=== PATIENT | female | born 1985 | race African-American/Black ===

== ENCOUNTER 2019-02-23 21:01 | Emergency (ER) | payer MEDICAID, OTHER ==
[~2019-02-23] VITALS: Ht 167.6 cm; Wt 57.0 kg
[2019-02-24] MEDS ORDERED: BACITRACIN ZINC OINT UDPKT TOP ONE (03:30)
[2019-02-24] MEDS ORDERED: BACITRACIN 15GM TUBE TOP NR (04:15)
[2019-02-24 04:35] VITALS: BP 107/61
== END 2019-02-24 03:30 | disposition home or self-care (01) ==
LOC: ER 02-24 03:21
DX: M62.441 Contracture of muscle, right hand (principal); F17.200 Nicotine dependence, unspecified, uncomplicated; F12.10 Cannabis abuse, uncomplicated
CPT/HCPCS: 99284

== ENCOUNTER 2023-11-03 12:14 | Emergency (ER) | payer MEDICAID ==
[~2023-11-03] VITALS: Ht 170.2 cm; Wt 63.5 kg
[2023-11-03 12:29] VITALS: O2SAT 100
[2023-11-03 13:30] LABS: HEMATOCRIT. 27.2 % (36.0-48.0); HEMOGLOBIN. 8.5 g/dL (12.0-16.0); MEAN CORPUSCULAR HEMOGLOBIN 26.5 pg (28.0-32.0); MEAN CORPUSCULAR HGB CONC 31.3 g/dL (31.0-37.0); MEAN CORPUSCULAR VOLUME 84.8 fL (81.0-99.0); MEAN PLATELET VOLUME 7.4 fl (7.4-10.4); PLATELET 476 x1000/uL (130-400); RED BLOOD CELL COUNT 3.21 mill/uL (4.2-5.4); RED CELL DISTRIBUTION WIDTH 18.8 % (11.6-14.6); WHITE BLOOD COUNT 11.9 x1000/uL (4.5-11.0)
[2023-11-03 13:31] LABS: DIFFERENTIAL COMMENT 1
[2023-11-03 13:34] LABS: CARBON DIOXIDE 32 mEq/L (21-32); CHLORIDE 98 mEq/L (98-107); POTASSIUM 3.1 mEq/L (3.5-5.1); SODIUM 136 mEq/L (136-145)
[2023-11-03 13:35] LABS: CALCIUM 8.7 mg/dL (8.7-10.4)
[2023-11-03 13:40] LABS: CREATININE 0.6 mg/dL (0.6-1.0); GLUCOSE 89 mg/dL (70-105); UREA NITROGEN BLOOD 14 mg/dL (9-23)
[2023-11-03 13:47] LABS: INR 1.1; PROTHROMBIN TIME 12.5 sec (9.6-11.0)
[2023-11-03 13:54] LABS: HCG SCREEN NEGATIVE
[2023-11-03 14:52] LABS: ANISOCYTOSIS 2+; PLATELET ESTIMATE INCREASED
[2023-11-03 15:57] LABS: CLARITY URINE CLOUDY (CLEAR); COLOR URINE YELLOW (YELLOW); GLUCOSE URINE NEGATIVE (NEGATIVE); KETONES URINE 1+ (NEGATIVE); LEUKOCYTE ESTERASE URINE 1+ (NEGATIVE); NITRITE URINE POSITIVE (NEGATIVE); OCCULT BLOOD URINE 3+ (NEGATIVE); PH URINE 6.5 (4.5-8.0); PROTEIN URINE 1+ (NEGATIVE); SPECIFIC GRAVITY URINE 1.019 (1.005-1.030)
[2023-11-03 16:17] LABS: BACTERIA URINE 4+; RBC URINE TNTC /hpf (0-2); SQUAMOUS EPITHELIAL CELL URINE FEW /lpf (RARE/1+); WBC URINE 25-50 /hpf (0-2); YEAST URINE NONE SEEN
[2023-11-03] MEDS ORDERED: IBUP-1523 MT (17:01)
[2023-11-03] MEDS: KETOROLAC 15MG/ML VIAL IM ONE (18:19)
[2023-11-03 18:21] VITALS: BP 124/76; PULSE 78; RESP 16; TEMP 98.3
[2023-11-03] MEDS ORDERED: CEFD300C3 MT (19:07)
[2023-11-03] MEDS ORDERED: CEFTRIAXONE SODIUM 500MG VIAL IM ONE (20:45)
[2023-11-03] MEDS ORDERED: AZITHROMYCIN 500 MG TABLET PO SCH ×2 (20:45→21:00)
== END 2023-11-03 21:05 | disposition home or self-care (01) ==
LOC: ER 12:14
DX: N39.0 Urinary tract infection, site not specified (principal); N83.201 Unspecified ovarian cyst, right side; N83.202 Unspecified ovarian cyst, left side; F12.10 Cannabis abuse, uncomplicated
CPT/HCPCS: 99285; 74176; 76830; 76856; 80048; 81003; 81025; 84703; 83690; 85025; 85610; 87086; 87186; 87077; 36415; 96372; J1885

== ENCOUNTER 2023-12-14 18:26 | Emergency (ER) | payer MEDICAID ==
[~2023-12-14] VITALS: Ht 175.3 cm; Wt 57.0 kg
[~2023-12-14 18:26] MED LIST: CEFD300C3 MT; IBUP-1523 MT
[2023-12-14 18:29] VITALS: BP 107/80; PULSE 83; RESP 18; TEMP 98.4; O2SAT 99
[2023-12-14 19:50] LABS: BASOPHILS % 0.3 % (0.0-2.0); EOSINOPHILS % 0.6 % (0.0-5.0); HEMATOCRIT. 34.5 % (36.0-48.0); LYMPHOCYTES % 13.1 % (20.0-50.0); MEAN CORPUSCULAR HEMOGLOBIN 28.5 pg (28.0-32.0); MEAN PLATELET VOLUME 6.7 fl (7.4-10.4); MONOCYTES % 4.6 % (2.0-8.0); NEUTROPHILS % 81.4 % (40.0-76.0); PLATELET 564 x1000/uL (130-400); RED BLOOD CELL COUNT 3.88 mill/uL (4.2-5.4); RED CELL DISTRIBUTION WIDTH 23.9 % (11.6-14.6); WHITE BLOOD COUNT 12.4 x1000/uL (4.5-11.0)
[2023-12-14 19:56] LABS: CHLORIDE 97 mEq/L (98-107); POTASSIUM 4.2 mEq/L (3.5-5.1); SODIUM 133 mEq/L (136-145)
[2023-12-14 19:57] LABS: CALCIUM 9.8 mg/dL (8.7-10.4); CARBON DIOXIDE 30 mEq/L (21-32)
[2023-12-14 20:01] LABS: ADD RBC MORPHOLOGY YES; DIFFERENTIAL COMMENT 1
[2023-12-14 20:02] LABS: CREATININE 0.8 mg/dL (0.6-1.0); GLUCOSE 116 mg/dL (70-105); UREA NITROGEN BLOOD 16 mg/dL (9-23)
[2023-12-14 20:04] LABS: ALANINE AMINOTRANSFERASE < 7 IU/L (10-49); ALBUMIN 4.2 g/dL (3.2-4.8); ASPARTATE AMINOTRANSFERASE 14 IU/L (<34); BILIRUBIN DIRECT 0.1 mg/dL (<=3.0); BILIRUBIN TOTAL 0.5 mg/dL (0.1-1.0); PROTEIN TOTAL 9.1 g/dL (6.0-8.3)
[2023-12-14 20:09] LABS: HCG SCREEN NEGATIVE
[2023-12-14 20:17] LABS: ANISOCYTOSIS 2+; PLATELET ESTIMATE INCREASED
== END 2023-12-15 00:05 | disposition left against medical advice (07) ==
LOC: ER 18:26
DX: R10.9 Unspecified abdominal pain (principal); Z53.21 Procedure and treatment not carried out due to patient leaving prior to being seen by health care provider
CPT/HCPCS: 36415; 80048; 80076; 84703; 85025; 99283